=== PATIENT | male | born 1940 | race Caucasian/White ===

== ENCOUNTER 2016-12-28 07:25 | Outpatient (CLI) | payer MEDICARE ==
[2016-12-28 07:52] LABS: Hemoglobin A1c 5.8 % (4.0-6.0)
[2016-12-28 08:33] LABS: ALT (SGPT) 14 U/L (0-55); AST (SGOT) 21 U/L (5-34); Albumin 3.8 g/dL (3.4-4.8); Alkaline Phosphatase 63 U/L (40-150); Anion Gap 16 mmol/L (10-20); BUN (Urea Nitrogen) 23 mg/dL (8.4-25.7); Bilirubin, Direct 0.4 mg/dL (0.1-0.3); Calc. Creatinine Clearance 0 mL/min (70-130); Calcium 9.6 mg/dL (7.8-10.44); Carbon Dioxide 26 mmol/L (23-31); Cardiac Risk 2.8 (Less than 4.5); Chloride 102 mmol/L (98-107); Cholesterol 124 mg/dL (< 200 Desired); Estimated GFR-MDRD 52; Glucose 110 mg/dL (83-110); HDL Cholesterol 44 mg/dL (>60 Neg Risk); LDL Cholesterol, Calculated 70 mg/dL; Potassium 4.4 mmol/L (3.5-5.1); Protein, Total 6.7 g/dL (5.8-8.1); Sodium 140 mmol/L (136-145); Triglycerides 51 mg/dL (Less than 150)
== END 2016-12-28 07:26 | disposition home or self-care (01) ==
LOC: MADLAB 07:25
PROVIDERS: ATTEND Internal Medicine Cardiovascular Disease
DX: Z48.812 Encounter for surgical aftercare following surgery on the circulatory system (principal); Z95.1 Presence of aortocoronary bypass graft
CPT/HCPCS: 36415; 80048; 80061; 80076; 83036

== ENCOUNTER 2017-08-08 10:07 | Outpatient (CLI) | payer MEDICARE ==
[2017-08-08 10:26] LABS: #Basophils 0.1 thou/uL (0.0-0.2); #Eosinphils 0.2 thou/uL (0.0-0.7); #Lymphocytes 1.7 thou/uL (1.20-3.40); #Monocytes 0.5 thou/uL (0.11-0.59); #Neutrophils 4.7 thou/uL (1.40-6.50); %Basophils 0.9 % (0.0-1.0); %Eosinophils 2.2 % (0.0-10.0); %Lymphocytes 23.7 % (21.0-51.0); %Monocytes 7.4 % (0.0-10.0); %Neutrophils 65.9 % (42.0-75.0); Hemoglobin 11.7 g/dL (14.0-18.0); Mean Corpuscular HGB CONC 34.2 g/dL (32.0-36.0); Mean Corpuscular Hemoglobin 31.7 pg (27.0-31.0); Mean Corpuscular Volume 92.6 fl (80.0-94.0); Mean Platelet Volume 9.1 fL (7.4-10.4); Platelet Count 121 thou/uL (130-400); RBC Distribution Width 12.1 % (11.5-14.5); White Blood Cell (WBC) Count 7.2 thou/uL (4.8-10.8)
[2017-08-08 10:38] LABS: Hemoglobin A1c 5.5 % (4.0-6.0)
[2017-08-08 11:51] LABS: ALT (SGPT) 14 U/L (8-55); AST (SGOT) 20 U/L (5-34); Albumin 3.4 g/dL (3.4-4.8); Alkaline Phosphatase 63 U/L (40-150); Anion Gap 13 mmol/L (10-20); BUN (Urea Nitrogen) 23 mg/dL (8.4-25.7); Bilirubin, Direct 0.4 mg/dL (0.1-0.3); Bilirubin, Total 0.8 mg/dL (0.2-1.2); Calc. Creatinine Clearance 0 mL/min (70-130); Calcium 9.2 mg/dL (7.8-10.44); Carbon Dioxide 25 mmol/L (23-31); Cardiac Risk 2.7 (Less than 4.5); Chloride 104 mmol/L (98-107); Cholesterol 93 mg/dl (< 200 Desired); Estimated GFR-MDRD 52; Glucose 101 mg/dL (83-110); HDL Cholesterol 34 mg/dL (>60 Neg Risk); LDL Cholesterol, Calculated 49 mg/dL; Potassium 4.1 mmol/L (3.5-5.1); Protein, Total 6.4 g/dL (5.8-8.1); Sodium 138 mmol/L (136-145); Triglycerides 52 mg/dL (Less than 150)
== END 2017-08-08 10:08 | disposition home or self-care (01) ==
LOC: MADLAB 10:07
PROVIDERS: ATTEND Family Medicine
DX: E11.65 Type 2 diabetes mellitus with hyperglycemia (principal); Z95.810 Presence of automatic (implantable) cardiac defibrillator
CPT/HCPCS: 36415; 80048; 80061; 80076; 83036; 85025

== ENCOUNTER 2018-09-01 07:55 | Outpatient (CLI) | payer MEDICARE ==
[2018-09-02 11:57] LABS: Chloride 105 mmol/L (98-107); Potassium 4.2 mmol/L (3.5-5.1); Sodium 141 mmol/L (136-145)
[2018-09-02 11:58] LABS: Anion Gap 12 mmol/L (10-20); BUN (Urea Nitrogen) 22 mg/dL (8.4-25.7); Calc. Creatinine Clearance 0 mL/min (70-130); Carbon Dioxide 28 mmol/L (23-31); Estimated GFR-MDRD 55; Glucose 107 mg/dL (83-110)
[2018-09-02 11:59] LABS: Calcium 9.4 mg/dL (7.8-10.44)
== END 2018-09-01 07:56 | disposition home or self-care (01) ==
LOC: MADLAB 07:55
PROVIDERS: ATTEND Family Medicine
DX: I10 Essential (primary) hypertension (principal)
CPT/HCPCS: 36415; 80048

== ENCOUNTER 2019-10-01 13:25 | Emergency (ER) | payer MEDICARE ==
--- NOTE | 2019-10-01 14:07 | RAD ---
Portable frontal chest radiograph: 10/01/2019 COMPARISON: 08/27/2017 HISTORY: Chest pain FINDINGS: Stable transvenous AICD, midline sternotomy wires, and mediastinal clips. Heart and mediast inal contours are stable. Stable atherosclerotic calcification of the aortic arch. There is mild diffuse increased linear interstitial density with pulmonary hyperinflation, stable as well. No pneumothorax or pleural fluid. No focal consolidation or alveolar edema. IMPRESSION: Stable appearance of the chest as described above.
[2019-10-01] MEDS ORDERED: Aspirin Chewable 81 MG TAB ONE (14:13)
[2019-10-01] MEDS ORDERED: Nitroglycerin 0.4 MG TAB 1 EACH ONE (14:13)
[2019-10-01 14:22] LABS: #Eosinphils 0.1 thou/uL (0.0-0.7); #Lymphocytes 1.5 thou/uL (1.20-3.40); #Monocytes 0.6 thou/uL (0.11-0.59); #Neutrophils 5.2 thou/uL (1.40-6.50); %Basophils 0.6 % (0.0-1.0); %Eosinophils 1.6 % (0.0-10.0); %Lymphocytes 20.2 % (21.0-51.0); %Monocytes 7.7 % (0.0-10.0); ALT (SGPT) 8 U/L (8-55); AST (SGOT) 15 U/L (5-34); Albumin 3.3 g/dL (3.4-4.8); Alkaline Phosphatase 65 U/L (40-110); Anion Gap 13 mmol/L (10-20); BUN (Urea Nitrogen) 27 mg/dL (8.4-25.7); Bilirubin, Total 0.7 mg/dL (0.2-1.2); Calc. Creatinine Clearance 0 mL/min (70-130); Calcium 8.8 mg/dL (7.8-10.44); Carbon Dioxide 24 mmol/L (23-31); Chloride 103 mmol/L (98-107); Estimated GFR-MDRD 45; Globulin 2.8 g/dL (2.4-3.5); Glucose 154 mg/dL (83-110); Hemoglobin 10.8 g/dL (14.0-18.0); Mean Corpuscular Hemoglobin 30.3 pg (27.0-31.0); Mean Corpuscular Volume 94.7 fL (78.0-98.0); Mean Platelet Volume 9.1 fL (7.4-10.4); Platelet Count 113 thou/uL (130-400); Platelet Morphology Comment Appears Decreased; Potassium 4.3 mmol/L (3.5-5.1); Protein, Total 6.1 g/dL (5.8-8.1); RBC Distribution Width 11.6 % (11.5-14.5); Red Blood Cell (RBC) Count 3.55 mill/uL (4.70-6.10); Sodium 136 mmol/L (136-145); White Blood Cell (WBC) Count 7.5 thou/uL (4.8-10.8)
[2019-10-01] MEDS ORDERED: Sodium Chloride 0.9% 1,000 ML ONE (14:24)
[2019-10-01] MEDS ORDERED: Morphine 4 MG/ML VIAL ONE (15:58)
== END 2019-10-01 16:27 | disposition short-term general hospital (02) ==
LOC: MADERS 13:25
DX: R07.9 Chest pain, unspecified (principal); I25.10 Atherosclerotic heart disease of native coronary artery without angina pectoris; I25.2 Old myocardial infarction; E11.9 Type 2 diabetes mellitus without complications; E78.5 Hyperlipidemia, unspecified; E78.00 Pure hypercholesterolemia, unspecified; I10 Essential (primary) hypertension; Z87.891 Personal history of nicotine dependence; Z79.82 Long term (current) use of aspirin; Z79.84 Long term (current) use of oral hypoglycemic drugs; Z79.899 Other long term (current) drug therapy
CPT/HCPCS: 71045; 80053; 83880; 84484; 85025; 93005; 94760; 96361; 96374; J2270; J7050

== ENCOUNTER 2020-01-14 21:21 | Emergency (ER) | payer MEDICARE ==
[2020-01-14 22:08] LABS: INR-International Normal Ratio 1.3; PTT 35.5 SEC (22.9-36.1); Prothrombin Time 16.4 SEC (12.0-14.7)
--- NOTE | 2020-01-14 22:11 | RAD ---
Portable frontal chest radiograph: 01/14/2020 COMPARISON: 10/01/2019 HISTORY: Chest pain FINDINGS: Heart and mediastinal contours are stable. Stable midline sternotomy wires and transvenous pacing device. No pneumothorax, pleural fluid, focal consolidation, or alveolar edema. IMPRESSION: No acute findings.
[2020-01-14 22:19] LABS: ALT (SGPT) 13 U/L (8-55); AST (SGOT) 20 U/L (5-34); Albumin 3.5 g/dL (3.4-4.8); Alkaline Phosphatase 75 U/L (40-110); Anion Gap 13 mmol/L (10-20); BUN (Urea Nitrogen) 22 mg/dL (8.4-25.7); Bilirubin, Total 0.6 mg/dL (0.2-1.2); Calc. Creatinine Clearance 0 mL/min (70-130); Calcium 8.7 mg/dL (7.8-10.44); Carbon Dioxide 24 mmol/L (23-31); Chloride 104 mmol/L (98-107); Estimated GFR-MDRD 53; Globulin 2.9 g/dL (2.4-3.5); Glucose 113 mg/dL (83-110); Potassium 4.4 mmol/L (3.5-5.1); Protein, Total 6.4 g/dL (5.8-8.1); Sodium 137 mmol/L (136-145)
[2020-01-14 22:21] LABS: #Basophils 0.1 thou/uL (0.0-0.2); #Eosinphils 0.1 thou/uL (0.0-0.7); #Monocytes 0.6 thou/uL (0.11-0.59); #Neutrophils 3.2 thou/uL (1.40-6.50); %Basophils 0.9 % (0.0-1.0); %Eosinophils 1.8 % (0.0-10.0); %Lymphocytes 32.8 % (21.0-51.0); %Monocytes 9.9 % (0.0-10.0); %Neutrophils 54.7 % (42.0-75.0); Mean Corpuscular HGB CONC 32.4 g/dL (32.0-36.0); Mean Corpuscular Hemoglobin 30.2 pg (27.0-31.0); Mean Corpuscular Volume 93.2 fL (78.0-98.0); Mean Platelet Volume 10.7 fL (7.4-10.4); Platelet Count 106 thou/uL (130-400); Platelet Morphology Comment Appears Decreased; RBC Distribution Width 11.5 % (11.5-14.5); RBC Morphology Normal; Red Blood Cell (RBC) Count 3.96 mill/uL (4.70-6.10); White Blood Cell (WBC) Count 5.8 thou/uL (4.8-10.8)
[2020-01-14 22:40] LABS: Manual Diff?? NO
[2020-01-14 22:41] LABS: MDiff Complete? YES
== END 2020-01-14 23:05 | disposition short-term general hospital (02) ==
LOC: MADERS 21:21
DX: R07.9 Chest pain, unspecified (principal); R04.0 Epistaxis; I25.10 Atherosclerotic heart disease of native coronary artery without angina pectoris; I25.2 Old myocardial infarction; E11.9 Type 2 diabetes mellitus without complications; E78.5 Hyperlipidemia, unspecified; E78.00 Pure hypercholesterolemia, unspecified; I10 Essential (primary) hypertension; Z87.891 Personal history of nicotine dependence; Z79.84 Long term (current) use of oral hypoglycemic drugs; Z79.899 Other long term (current) drug therapy; Z79.82 Long term (current) use of aspirin
CPT/HCPCS: 71045; 80053; 84484; 85025; 85610; 85730; 94760

== ENCOUNTER 2020-08-20 18:12 | Emergency (ER) | payer MEDICARE ==
[~2020-08-20 18:12] MED LIST: Iopamidol 370 76% 100 ML VIAL ONE
[2020-08-20 19:10] LABS: #Basophils 0.1 thou/uL (0.0-0.2); #Eosinphils 0.1 thou/uL (0.0-0.7); #Lymphocytes 0.9 thou/uL (1.20-3.40); #Monocytes 0.6 thou/uL (0.11-0.59); #Neutrophils 9.2 thou/uL (1.40-6.50); %Basophils 0.6 % (0.0-1.0); %Eosinophils 0.5 % (0.0-10.0); %Lymphocytes 8.5 % (21.0-51.0); %Monocytes 5.9 % (0.0-10.0); %Neutrophils 84.5 % (42.0-75.0); Hemoglobin 11.4 g/dL (14.0-18.0); MDiff Complete? YES; Manual Diff?? NO; Mean Corpuscular HGB CONC 33.3 g/dL (32.0-36.0); Mean Corpuscular Hemoglobin 31.3 pg (27.0-31.0); Mean Platelet Volume 9.1 fL (7.4-10.4); Platelet Count 119 thou/uL (130-400); RBC Distribution Width 12.6 % (11.5-14.5); Red Blood Cell (RBC) Count 3.66 mill/uL (4.70-6.10); White Blood Cell (WBC) Count 10.9 thou/uL (4.8-10.8)
[2020-08-20 19:22] LABS: ALT (SGPT) 15 U/L (8-55); AST (SGOT) 17 U/L (5-34); Albumin 3.1 g/dL (3.4-4.8); Alkaline Phosphatase 85 U/L (40-110); Anion Gap 13 mmol/L (10-20); BUN (Urea Nitrogen) 22 mg/dL (8.4-25.7); Bilirubin, Total 0.9 mg/dL (0.2-1.2); Calc. Creatinine Clearance 0 mL/min (70-130); Calcium 8.7 mg/dL (7.8-10.44); Carbon Dioxide 27 mmol/L (23-31); Chloride 105 mmol/L (98-107); Estimated GFR-MDRD 57; Globulin 2.9 g/dL (2.4-3.5); Glucose 145 mg/dL (83-110); Lipase 7 U/L (8-78); Potassium 4.6 mmol/L (3.5-5.1); Sodium 140 mmol/L (136-145)
--- NOTE | 2020-08-20 21:16 | CT ---
CT ABDOMEN AND PELVIS WITH IV CONTRAST: 08/20/20 HISTORY: Constipation, vomiting. COMPARISON: 05/28/20 and 05/17/20. FINDINGS: Calcified pleural plaques are again seen. The small low density lesion in the right lobe of the liver is again seen. The gallbladder is distended without calcified gallstones. The spleen, pancreas, adre nal glands and left kidney are normal. There is a tiny nonobstructing right renal calculus. No free air, free fluid or lymphadenopathy is seen in the abdomen or pelvis. The prostate is enlarged . The small bowel loops are not abnormally dilated. There is fecal material in the colon. there are v ascular calcifications without evidence of aneurysmal dilatation of the abdominal aorta. There are de generative changes in the spine. IMPRESSION: 1. Gallbladder distention. 2. Tiny nonobstructing right renal calculus. 3. Prostatic enlargement. 4. Constipation. 5. No evidence of small bowel obstruction. POS: OFF
== END 2020-08-20 21:15 | disposition home or self-care (01) ==
LOC: MADERS 18:12
DX: K59.00 Constipation, unspecified (principal); R11.10 Vomiting, unspecified; E11.9 Type 2 diabetes mellitus without complications; E78.5 Hyperlipidemia, unspecified; E78.00 Pure hypercholesterolemia, unspecified; I10 Essential (primary) hypertension; I25.10 Atherosclerotic heart disease of native coronary artery without angina pectoris; I25.2 Old myocardial infarction; Z87.891 Personal history of nicotine dependence
CPT/HCPCS: 36415; 74177; 80053; 83605; 83690; 85025; Q9967

== ENCOUNTER 2020-10-17 06:34 | Emergency (ER) | payer MEDICARE ==
[2020-10-17] MEDS ORDERED: methylPREDNISolone Sod Succ/PF 125 MG/2 ML VIAL ONE (07:04)
[2020-10-17] MEDS ORDERED: Fentanyl 100 MCG/2 ML VIAL ONE (07:04)
== END 2020-10-17 07:29 | disposition home or self-care (01) ==
LOC: MADERS 06:34
DX: M54.16 Radiculopathy, lumbar region (principal); I25.10 Atherosclerotic heart disease of native coronary artery without angina pectoris; I25.2 Old myocardial infarction; E11.9 Type 2 diabetes mellitus without complications; E78.5 Hyperlipidemia, unspecified; I10 Essential (primary) hypertension; E78.00 Pure hypercholesterolemia, unspecified; Z87.891 Personal history of nicotine dependence; Z79.899 Other long term (current) drug therapy; Z79.82 Long term (current) use of aspirin
CPT/HCPCS: 96374; 96375; J2930; J3010

== ENCOUNTER 2021-10-21 12:25 | Emergency (ER) | payer MEDICARE ==
[2021-10-21 13:17] LABS: #Basophils 0.1 thou/uL (0.0-0.2); #Eosinphils 0.1 thou/uL (0.0-0.7); #Lymphocytes 0.6 thou/uL (1.20-3.40); #Neutrophils 5.3 thou/uL (1.40-6.50); %Basophils 1.1 % (0.0-1.0); %Eosinophils 1.3 % (0.0-10.0); %Lymphocytes 7.8 % (21.0-51.0); %Monocytes 13.7 % (0.0-10.0); Hemoglobin 9.6 g/dL (14.0-18.0); Mean Corpuscular HGB CONC 34.5 g/dL (32.0-36.0); Mean Corpuscular Hemoglobin 32.2 pg (27.0-31.0); Mean Corpuscular Volume 93.3 fL (78.0-98.0); Mean Platelet Volume 6.9 fL (7.4-10.4); Platelet Count 156 thou/uL (130-400); RBC Distribution Width 12.2 % (11.5-14.5); Red Blood Cell (RBC) Count 2.99 mill/uL (4.70-6.10)
[2021-10-21] MEDS ORDERED: Sodium Chloride 0.9% 1,000 ML ONE (13:19)
[2021-10-21 13:35] LABS: ALT (SGPT) 11 U/L (8-55); AST (SGOT) 22 U/L (5-34); Albumin 2.6 g/dL (3.4-4.8); Alkaline Phosphatase 71 U/L (40-110); Anion Gap 11 mmol/L (10-20); BUN (Urea Nitrogen) 17 mg/dL (8.4-25.7); Bilirubin, Total 1.5 mg/dL (0.2-1.2); CK (CPK) 124 U/L (30-200); Calc. Creatinine Clearance 0 mL/min (70-130); Carbon Dioxide 32 mmol/L (23-31); Chloride 99 mmol/L (98-107); Globulin 2.8 g/dL (2.4-3.5); Glucose 131 mg/dL (83-110); Protein, Total 5.4 g/dL (5.8-8.1); Sodium 139 mmol/L (136-145)
[2021-10-21 13:56] LABS: Potassium 2.8 mmol/L (3.5-5.1)
[2021-10-21] MEDS ORDERED: Potassium Chloride 20 MEQ TAB ONE (14:13)
[2021-10-21 15:10] LABS: Bilirubin Small (Negative); Blood, Urine Negative (Negative); Clarity Clear (Clear); Glucose, Urine (Dipstick) 100 mg/dL (Negative); Ketone, Urine 15 mg/dL (Negative); Leukocyte Negative (Negative); Nitrite Negative (Negative); Protein, Urine (Dipstick) 30 mg/dL (Neg-Trace); Urobilinogen > or = 8.0 mg/dL (Less than 2)
[2021-10-21 15:17] LABS: Bacteria/HPF Rare-Few HPF (None Seen); Mucous/LPF 2+ LPF (<2+); RBC/HPF 0-3 HPF (0-3); Squamous Epithelial 0-3 HPF (0-3); WBC/HPF 0-3 HPF (0-3)
[2021-10-21] MEDS ORDERED: Sodium Chloride 0.9% 100 ML ONE (16:00)
[2021-10-21] MEDS ORDERED: cefTRIAXone\\ROCEPHIN 1 GM VIAL ONE (16:00)
== END 2021-10-21 16:25 | disposition home or self-care (01) ==
LOC: MADERS 12:25
DX: J18.9 Pneumonia, unspecified organism (principal); D64.9 Anemia, unspecified; E87.6 Hypokalemia; I95.1 Orthostatic hypotension; E11.9 Type 2 diabetes mellitus without complications; I10 Essential (primary) hypertension; I25.2 Old myocardial infarction; E78.5 Hyperlipidemia, unspecified; E78.00 Pure hypercholesterolemia, unspecified; Z87.891 Personal history of nicotine dependence
CPT/HCPCS: 70450; 71045; 71260; 80053; 81003; 81015; 82550; 83605; 84443; 84484; 85025; 93005; 94760; 96365; J0696; J3490; J7050

== ENCOUNTER 2022-01-15 18:35 | Emergency (ER) | payer MEDICARE ==
[2022-01-15] MEDS ORDERED: Nitroglycerin 0.4 MG TAB 1 EACH ONE (18:59)
[2022-01-15 19:21] LABS: #Basophils 0.1 thou/uL (0.0-0.2); #Eosinphils 0.2 thou/uL (0.0-0.7); #Lymphocytes 2.4 thou/uL (1.20-3.40); #Monocytes 0.6 thou/uL (0.11-0.59); #Neutrophils 3.7 thou/uL (1.40-6.50); %Basophils 0.8 % (0.0-1.0); %Eosinophils 3.1 % (0.0-10.0); %Lymphocytes 34.8 % (21.0-51.0); %Monocytes 8.6 % (0.0-10.0); %Neutrophils 52.7 % (42.0-75.0); Mean Corpuscular HGB CONC 34.2 g/dL (32.0-36.0); Mean Corpuscular Hemoglobin 31.7 pg (27.0-31.0); Mean Corpuscular Volume 92.6 fL (78.0-98.0); Platelet Count 116 thou/uL (130-400); RBC Distribution Width 10.8 % (11.5-14.5); Red Blood Cell (RBC) Count 4.42 mill/uL (4.70-6.10)
[2022-01-15 19:22] LABS: ALT (SGPT) 19 U/L (8-55); AST (SGOT) 24 U/L (5-34); Albumin 3.6 g/dL (3.4-4.8); Alkaline Phosphatase 122 U/L (40-110); Anion Gap 13 mmol/L (10-20); BUN (Urea Nitrogen) 17 mg/dL (8.4-25.7); Bilirubin, Total 0.7 mg/dL (0.2-1.2); CK (CPK) 38 U/L (30-200); Calc. Creatinine Clearance 0 mL/min (70-130); Calcium 9.3 mg/dL (7.8-10.44); Carbon Dioxide 27 mmol/L (23-31); Chloride 104 mmol/L (98-107); Globulin 3.4 g/dL (2.4-3.5); Glucose 117 mg/dL (83-110); Large Platelets SLIGHT; MDiff Complete? YES; Platelet Morphology Comment Appears Decreased; Potassium 3.9 mmol/L (3.5-5.1); Sodium 140 mmol/L (136-145)
[2022-01-15 19:23] LABS: CKMB 1.5 ng/mL (0-6.6)
== END 2022-01-15 20:10 | disposition home or self-care (01) ==
LOC: MADERS 18:35
DX: I25.709 Atherosclerosis of coronary artery bypass graft(s), unspecified, with unspecified angina pectoris (principal); M17.11 Unilateral primary osteoarthritis, right knee; I25.2 Old myocardial infarction; E11.9 Type 2 diabetes mellitus without complications; E78.5 Hyperlipidemia, unspecified; I10 Essential (primary) hypertension; Z79.899 Other long term (current) drug therapy
CPT/HCPCS: 71045; 80053; 82550; 82553; 84484; 85025; 93005; 94760

== ENCOUNTER 2022-05-15 17:39 | Emergency (ER) | payer MEDICARE ==
[~2022-05-15 17:39] MED LIST changes: -Iopamidol 370 76% 100 ML VIAL ONE; +Sodium Chloride 0.9% 500 ML BAG ONE
[2022-05-15 19:19] LABS: #Basophils 0.1 thou/uL (0.0-0.2); #Eosinphils 0.1 thou/uL (0.0-0.7); #Lymphocytes 1.7 thou/uL (1.20-3.40); #Monocytes 0.5 thou/uL (0.11-0.59); #Neutrophils 4.1 thou/uL (1.40-6.50); %Eosinophils 1.3 % (0.0-10.0); %Lymphocytes 26.9 % (21.0-51.0); %Monocytes 7.5 % (0.0-10.0); %Neutrophils 63.5 % (42.0-75.0); Hemoglobin 12.3 g/dL (14.0-18.0); Mean Corpuscular HGB CONC 33.9 g/dL (32.0-36.0); Mean Corpuscular Hemoglobin 31.6 pg (27.0-31.0); Mean Corpuscular Volume 93.4 fL (78.0-98.0); Mean Platelet Volume 12.4 fL (7.4-10.4); Platelet Count 99 thou/uL (130-400); White Blood Cell (WBC) Count 6.4 thou/uL (4.8-10.8)
[2022-05-15 19:20] LABS: Hypochromia SLIGHT = 6-15 cells (100X) (0-5/hpf); MDiff Complete? YES; Platelet Morphology Comment Appears Decreased
[2022-05-15 19:22] LABS: ALT (SGPT) 21 U/L (8-55); AST (SGOT) 14 U/L (5-34); Albumin 3.3 g/dL (3.4-4.8); Alkaline Phosphatase 97 U/L (40-110); Anion Gap 17 mmol/L (10-20); BUN (Urea Nitrogen) 22 mg/dL (8.4-25.7); Bicarbonate (HCO3v) 25.2 mmol/L (22.0-28.0); Bilirubin, Total 0.9 mg/dL (0.2-1.2); CO2 Tension (PvCO2) 42.1 mmHg (42.0-51.0); Calc. Creatinine Clearance 0 mL/min (70-130); Calcium 9.4 mg/dL (7.8-10.44); Calcium, Ionized 1.25 mmol/L (1.15-1.33); Carbon Dioxide 24 mmol/L (23-31); Chloride 94 mmol/L (98-107); Hemoglobin - Calc 12.7 g/dL (14.0-18.0); Potassium 4.8 mmol/L (3.5-5.1); Protein, Total 6.3 g/dL (5.8-8.1); Sodium 128 mmol/L (138-145); Sodium 130 mmol/L (136-145); T. Carbon Dioxide 26.5 mmol/L (22.0-28.0); vO2 Saturation-calc 84.3 % (60.0-85.0)
[2022-05-15 19:31] LABS: Glucose 676 mg/dL (83-110)
[2022-05-15] MEDS ORDERED: Sodium Chloride 0.9% 500 ML ONE (19:49)
[2022-05-15] MEDS ORDERED: Insulin Regular 300 UNITS/3 ML VIAL ONE (19:49)
[2022-05-15 20:44] LABS: Bilirubin Negative (Negative); Blood, Urine Negative (Negative); Clarity Clear (Clear); Glucose, Urine (Dipstick) >=1000 mg/dL (Negative); Ketone, Urine Negative (Negative); Leukocyte Negative (Negative); Nitrite Negative (Negative); Protein, Urine (Dipstick) Negative (Neg-Trace); Urobilinogen 0.2 mg/dL (Less than 2); pH, Urine 5.5 (5.0-9.0)
[2022-05-15 20:45] LABS: Specific Gravity, Urine 1.035 (1.002-1.036)
== END 2022-05-15 21:58 | disposition short-term general hospital (02) ==
LOC: MADERS 17:39
DX: E11.65 Type 2 diabetes mellitus with hyperglycemia (principal); E86.0 Dehydration; I25.2 Old myocardial infarction; E78.5 Hyperlipidemia, unspecified; I10 Essential (primary) hypertension; Z79.899 Other long term (current) drug therapy
CPT/HCPCS: 36416; 71045; 80053; 81003; 82010; 82330; 82803; 85025; 96361; 96374; J1815; J7030

== ENCOUNTER 2022-05-23 21:23 | Emergency (ER) | payer MEDICARE ==
[2022-05-23 22:57] LABS: #Eosinphils 0.1 thou/uL (0.0-0.7); #Lymphocytes 1.3 thou/uL (1.20-3.40); #Monocytes 0.7 thou/uL (0.11-0.59); #Neutrophils 6.1 thou/uL (1.40-6.50); %Basophils 0.5 % (0.0-1.0); %Lymphocytes 15.4 % (21.0-51.0); %Monocytes 8.9 % (0.0-10.0); %Neutrophils 74.2 % (42.0-75.0); Hemoglobin 12.7 g/dL (14.0-18.0); Mean Corpuscular HGB CONC 34.4 g/dL (32.0-36.0); Mean Corpuscular Hemoglobin 31.8 pg (27.0-31.0); Mean Corpuscular Volume 92.2 fL (78.0-98.0); Mean Platelet Volume 10.5 fL (7.4-10.4); Platelet Count 117 thou/uL (130-400); Platelet Morphology Comment Appears Decreased; RBC Distribution Width 11.6 % (11.5-14.5); White Blood Cell (WBC) Count 8.2 thou/uL (4.8-10.8)
[2022-05-23 23:11] LABS: ALT (SGPT) 23 U/L (8-55); AST (SGOT) 18 U/L (5-34); Albumin 3.4 g/dL (3.4-4.8); Alkaline Phosphatase 80 U/L (40-110); Anion Gap 13 mmol/L (10-20); BUN (Urea Nitrogen) 22 mg/dL (8.4-25.7); Bilirubin, Total 0.7 mg/dL (0.2-1.2); Calc. Creatinine Clearance 0 mL/min (70-130); Calcium 9.1 mg/dL (7.8-10.44); Carbon Dioxide 26 mmol/L (23-31); Chloride 102 mmol/L (98-107); Estimated GFR 46; Glucose 302 mg/dL (83-110); Lipase 14 U/L (8-78); Potassium 4.4 mmol/L (3.5-5.1); Protein, Total 6.4 g/dL (5.8-8.1); Sodium 137 mmol/L (136-145)
== END 2022-05-24 00:52 | disposition home or self-care (01) ==
LOC: MADERS 21:23
DX: K59.00 Constipation, unspecified (principal); I25.2 Old myocardial infarction; E11.9 Type 2 diabetes mellitus without complications; E78.5 Hyperlipidemia, unspecified; I10 Essential (primary) hypertension; Z79.899 Other long term (current) drug therapy
CPT/HCPCS: 74176; 83690; 84484; 85025; 93005; 94760; 36415-59

== ENCOUNTER 2022-06-08 13:30 | Emergency (ER) | payer MEDICARE ==
[2022-06-08] MEDS ORDERED: Sodium Chloride 0.9% 500 ML ONE (14:04)
[2022-06-08 14:34] LABS: #Eosinphils 0.1 thou/uL (0.0-0.7); #Lymphocytes 1.9 thou/uL (1.20-3.40); #Monocytes 0.6 thou/uL (0.11-0.59); #Neutrophils 5.2 thou/uL (1.40-6.50); %Basophils 0.6 % (0.0-1.0); %Eosinophils 1.5 % (0.0-10.0); %Lymphocytes 23.9 % (21.0-51.0); %Monocytes 7.2 % (0.0-10.0); %Neutrophils 66.8 % (42.0-75.0); Hemoglobin 13.1 g/dL (14.0-18.0); Mean Corpuscular HGB CONC 33.5 g/dL (32.0-36.0); Mean Corpuscular Volume 92.7 fL (78.0-98.0); Mean Platelet Volume 9.7 fL (7.4-10.4); Platelet Count 147 thou/uL (130-400); RBC Distribution Width 12.2 % (11.5-14.5); Red Blood Cell (RBC) Count 4.23 mill/uL (4.70-6.10); White Blood Cell (WBC) Count 7.8 thou/uL (4.8-10.8)
[2022-06-08 14:53] LABS: ALT (SGPT) 18 U/L (8-55); AST (SGOT) 17 U/L (5-34); Albumin 3.6 g/dL (3.4-4.8); Alkaline Phosphatase 70 U/L (40-110); Anion Gap 16 mmol/L (10-20); BUN (Urea Nitrogen) 28 mg/dL (8.4-25.7); Bilirubin, Total 0.9 mg/dL (0.2-1.2); Calc. Creatinine Clearance 0 mL/min (70-130); Calcium 9.4 mg/dL (7.8-10.44); Carbon Dioxide 22 mmol/L (23-31); Chloride 104 mmol/L (98-107); Estimated GFR 46; Glucose 153 mg/dL (83-110); Potassium 4.5 mmol/L (3.5-5.1); Protein, Total 6.6 g/dL (5.8-8.1); Sodium 137 mmol/L (136-145)
[2022-06-08 15:16] LABS: Bilirubin Negative (Negative); Blood, Urine Negative (Negative); Clarity Clear (Clear); Glucose, Urine (Dipstick) >=1000 mg/dL (Negative); Ketone, Urine Negative (Negative); Leukocyte Negative (Negative); Nitrite Negative (Negative); Protein, Urine (Dipstick) Negative (Neg-Trace); Specific Gravity, Urine 1.015 (1.005-1.030); pH, Urine 6.5 (5.0-9.0)
== END 2022-06-08 15:55 | disposition home or self-care (01) ==
LOC: MADERS 13:30
DX: E86.0 Dehydration (principal); R53.1 Weakness; I12.9 Hypertensive chronic kidney disease with stage 1 through stage 4 chronic kidney disease, or unspecified chronic kidney disease; E11.22 Type 2 diabetes mellitus with diabetic chronic kidney disease; N18.9 Chronic kidney disease, unspecified; I25.10 Atherosclerotic heart disease of native coronary artery without angina pectoris; I25.2 Old myocardial infarction; E78.5 Hyperlipidemia, unspecified; Z20.822 Contact with and (suspected) exposure to COVID-19
CPT/HCPCS: 71045; 80053; 81003; 84484; 85025; 93005; 94760; U0003; U0005; J7030

== ENCOUNTER 2022-07-09 15:41 | Inpatient (IN) | payer MEDICARE ==
[2022-07-09] MEDS ORDERED: Dextrose 50% Abboject 50 ML SYRINGE IVP PRN (21:00)
[2022-07-09] MEDS ORDERED: HumaLOG 300 UNITS/3 ML VIAL SC PRN (21:00)
[2022-07-09] MEDS ORDERED: Dextrose 5% in Water 1,000 ML IV PRN (21:00)
[2022-07-09] MEDS: Atorvastatin Calcium 40 MG TAB PO SCH (22:20)
[2022-07-09] MEDS: Gabapentin 100 MG CAP PO SCH (22:21)
[2022-07-09] MEDS: Midodrine HCl 2.5 MG TAB PO SCH (22:22)
[2022-07-09] MEDS: levETIRAcetam 500 MG TAB PO SCH (22:22)
[2022-07-10 04:04] VITALS: BMI 23.2
[2022-07-10] MEDS: Gabapentin 100 MG CAP PO SCH ×2 (09:09→20:23)
[2022-07-10] MEDS: Aspirin Chewable 81 MG TAB PO SCH (09:09)
[2022-07-10] MEDS: Clopidogrel Bisulfate 75 MG TAB PO SCH (09:09)
[2022-07-10] MEDS: levETIRAcetam 500 MG TAB PO SCH ×2 (09:10→20:22)
[2022-07-10] MEDS: ICOSAPENT ETHYL 1 GM PO SCH ×2 (09:10→20:31)
[2022-07-10] MEDS: Midodrine HCl 2.5 MG TAB PO SCH ×2 (09:10→20:22)
[2022-07-10] MEDS: Polyethylene Glycol 3350 17 GM Packet PO SCH (09:10)
[2022-07-10] MEDS: Atorvastatin Calcium 40 MG TAB PO SCH (20:22)
[2022-07-11] MEDS: Lantus 1000 UNITS/10 ML VIAL SC SCH (09:38)
[2022-07-11] MEDS: Clopidogrel Bisulfate 75 MG TAB PO SCH (09:39)
[2022-07-11] MEDS: Empagliflozin 10 MG TAB PO SCH (09:39)
[2022-07-11] MEDS: Aspirin Chewable 81 MG TAB PO SCH (09:39)
[2022-07-11] MEDS: Gabapentin 100 MG CAP PO SCH ×2 (09:40→20:24)
[2022-07-11] MEDS: levETIRAcetam 500 MG TAB PO SCH ×2 (09:40→20:23)
[2022-07-11] MEDS: Fludrocortisone Acetate 0.1 MG TAB PO SCH (09:40)
[2022-07-11] MEDS: Midodrine HCl 2.5 MG TAB PO SCH ×2 (09:40→20:24)
[2022-07-11] MEDS: Polyethylene Glycol 3350 17 GM Packet PO SCH (09:43)
[2022-07-11] MEDS: ICOSAPENT ETHYL 1 GM PO SCH ×2 (09:43→20:25)
[2022-07-11] MEDS: Atorvastatin Calcium 40 MG TAB PO SCH (20:23)
[2022-07-11] MEDS: Acetaminophen 325 MG TAB PO PRN (20:27)
[2022-07-12 05:39] LABS: #Basophils 0.1 thou/uL (0.0-0.2); #Eosinphils 0.2 thou/uL (0.0-0.7); #Lymphocytes 1.8 thou/uL (1.20-3.40); #Monocytes 0.7 thou/uL (0.11-0.59); #Neutrophils 4.2 thou/uL (1.40-6.50); %Basophils 1.2 % (0.0-1.0); %Eosinophils 3.3 % (0.0-10.0); %Monocytes 9.4 % (0.0-10.0); %Neutrophils 60.1 % (42.0-75.0); Hemoglobin 12.8 g/dL (14.0-18.0); Mean Corpuscular HGB CONC 32.2 g/dL (32.0-36.0); Mean Corpuscular Hemoglobin 31.9 pg (27.0-31.0); Mean Corpuscular Volume 99.3 fL (78.0-98.0); Mean Platelet Volume 11.1 fL (7.4-10.4); Platelet Count 127 thou/uL (130-400); RBC Distribution Width 12.8 % (11.5-14.5); Red Blood Cell (RBC) Count 4.01 mill/uL (4.70-6.10)
[2022-07-12 05:54] LABS: ALT (SGPT) 17 U/L (8-55); AST (SGOT) 14 U/L (5-34); Albumin 3.2 g/dL (3.4-4.8); Alkaline Phosphatase 71 U/L (40-110); Anion Gap 12 mmol/L (10-20); BUN (Urea Nitrogen) 31 mg/dL (8.4-25.7); Bilirubin, Total 0.6 mg/dL (0.2-1.2); Calc. Creatinine Clearance 42 mL/min (70-130); Calcium 9.3 mg/dL (7.8-10.44); Carbon Dioxide 24 mmol/L (23-31); Chloride 106 mmol/L (98-107); Estimated GFR 46; Globulin 2.5 g/dL (2.4-3.5); Glucose 110 mg/dL (83-110); Potassium 4.1 mmol/L (3.5-5.1); Protein, Total 5.7 g/dL (5.8-8.1); Sodium 138 mmol/L (136-145)
[2022-07-12] MEDS: Acetaminophen 325 MG TAB PO PRN (08:03)
[2022-07-12] MEDS: Midodrine HCl 2.5 MG TAB PO SCH ×2 (08:07→20:38)
[2022-07-12] MEDS: Aspirin Chewable 81 MG TAB PO SCH (08:07)
[2022-07-12] MEDS: Fludrocortisone Acetate 0.1 MG TAB PO SCH (08:08)
[2022-07-12] MEDS: Clopidogrel Bisulfate 75 MG TAB PO SCH (08:08)
[2022-07-12] MEDS: Gabapentin 100 MG CAP PO SCH ×2 (08:08→20:37)
[2022-07-12] MEDS: levETIRAcetam 500 MG TAB PO SCH ×2 (08:08→20:38)
[2022-07-12] MEDS: Empagliflozin 10 MG TAB PO SCH (08:08)
[2022-07-12] MEDS: ICOSAPENT ETHYL 1 GM PO SCH ×2 (08:09→20:38)
[2022-07-12] MEDS: Polyethylene Glycol 3350 17 GM Packet PO SCH (08:09)
[2022-07-12] MEDS: Lantus 1000 UNITS/10 ML VIAL SC SCH (08:09)
[2022-07-12] MEDS: Atorvastatin Calcium 40 MG TAB PO SCH (20:38)
[2022-07-13] MEDS: Polyethylene Glycol 3350 17 GM Packet PO SCH (07:57)
[2022-07-13] MEDS: Midodrine HCl 2.5 MG TAB PO SCH ×3 (07:58→20:45)
[2022-07-13] MEDS: Lantus 1000 UNITS/10 ML VIAL SC SCH (07:59)
[2022-07-13] MEDS ORDERED: Polyethylene Glycol 3350 17 GM Packet PO PRN (07:59)
[2022-07-13] MEDS: ICOSAPENT ETHYL 1 GM PO SCH ×2 (08:00→20:45)
[2022-07-13] MEDS ORDERED: Midodrine HCl 2.5 MG TAB PO SCH (08:15)
[2022-07-13] MEDS: Gabapentin 100 MG CAP PO SCH ×2 (08:33→20:45)
[2022-07-13] MEDS: levETIRAcetam 500 MG TAB PO SCH ×2 (08:33→20:45)
[2022-07-13] MEDS: Fludrocortisone Acetate 0.1 MG TAB PO SCH (08:33)
[2022-07-13] MEDS: Clopidogrel Bisulfate 75 MG TAB PO SCH (08:33)
[2022-07-13] MEDS: Aspirin Chewable 81 MG TAB PO SCH (08:33)
[2022-07-13] MEDS: Empagliflozin 10 MG TAB PO SCH (08:33)
[2022-07-13 11:40] LABS: Hemoglobin A1c 6.6 % (4.0-6.0)
[2022-07-13] MEDS: Atorvastatin Calcium 40 MG TAB PO SCH (20:44)
[2022-07-14] MEDS: Gabapentin 100 MG CAP PO SCH ×2 (08:42→21:10)
[2022-07-14] MEDS: Midodrine HCl 2.5 MG TAB PO SCH ×3 (08:42→21:10)
[2022-07-14] MEDS: Empagliflozin 10 MG TAB PO SCH (08:42)
[2022-07-14] MEDS: Clopidogrel Bisulfate 75 MG TAB PO SCH (08:42)
[2022-07-14] MEDS: Fludrocortisone Acetate 0.1 MG TAB PO SCH (08:42)
[2022-07-14] MEDS: Aspirin Chewable 81 MG TAB PO SCH (08:42)
[2022-07-14] MEDS: ICOSAPENT ETHYL 1 GM PO SCH ×2 (08:43→21:11)
[2022-07-14] MEDS: Lantus 1000 UNITS/10 ML VIAL SC SCH (08:43)
[2022-07-14] MEDS: levETIRAcetam 500 MG TAB PO SCH ×2 (08:43→21:10)
[2022-07-14] MEDS: Atorvastatin Calcium 40 MG TAB PO SCH (21:10)
[2022-07-15] MEDS: levETIRAcetam 500 MG TAB PO SCH ×2 (09:15→21:28)
[2022-07-15] MEDS: Gabapentin 100 MG CAP PO SCH ×2 (09:16→21:28)
[2022-07-15] MEDS: ICOSAPENT ETHYL 1 GM PO SCH ×2 (09:16→21:33)
[2022-07-15] MEDS: Lantus 1000 UNITS/10 ML VIAL SC SCH (09:17)
[2022-07-15] MEDS: Aspirin Chewable 81 MG TAB PO SCH (09:17)
[2022-07-15] MEDS: Empagliflozin 10 MG TAB PO SCH (09:17)
[2022-07-15] MEDS: Midodrine HCl 2.5 MG TAB PO SCH ×3 (09:17→21:27)
[2022-07-15] MEDS: Fludrocortisone Acetate 0.1 MG TAB PO SCH (09:17)
[2022-07-15] MEDS: Clopidogrel Bisulfate 75 MG TAB PO SCH (09:17)
[2022-07-15] MEDS: Atorvastatin Calcium 40 MG TAB PO SCH (21:28)
[2022-07-16] MEDS: Aspirin Chewable 81 MG TAB PO SCH (08:09)
[2022-07-16] MEDS: levETIRAcetam 500 MG TAB PO SCH (08:09)
[2022-07-16] MEDS: Gabapentin 100 MG CAP PO SCH (08:09)
[2022-07-16] MEDS: Midodrine HCl 2.5 MG TAB PO SCH (08:10)
[2022-07-16] MEDS: Fludrocortisone Acetate 0.1 MG TAB PO SCH (08:10)
[2022-07-16] MEDS: Clopidogrel Bisulfate 75 MG TAB PO SCH (08:10)
[2022-07-16] MEDS: Empagliflozin 10 MG TAB PO SCH (08:10)
[2022-07-16] MEDS: Lantus 1000 UNITS/10 ML VIAL SC SCH (08:10)
[2022-07-16] MEDS: ICOSAPENT ETHYL 1 GM PO SCH (08:11)
[2022-07-16 08:58] VITALS: BP 128/71; TEMP 97.2
== END 2022-07-16 11:45 | disposition home or self-care (01) | DRG 312 ==
LOC: MADMS 19:15
PROVIDERS: ADMIT Family Medicine; ATTEND Family Medicine
DX: I95.1 Orthostatic hypotension (principal); R53.1 Weakness; I25.5 Ischemic cardiomyopathy; I25.10 Atherosclerotic heart disease of native coronary artery without angina pectoris; I10 Essential (primary) hypertension; E78.5 Hyperlipidemia, unspecified; E11.40 Type 2 diabetes mellitus with diabetic neuropathy, unspecified; K21.9 Gastro-esophageal reflux disease without esophagitis; Z96.1 Presence of intraocular lens; K59.00 Constipation, unspecified; M47.812 Spondylosis without myelopathy or radiculopathy, cervical region; M43.12 Spondylolisthesis, cervical region; L57.0 Actinic keratosis; Z20.822 Contact with and (suspected) exposure to COVID-19; I25.2 Old myocardial infarction; Z95.810 Presence of automatic (implantable) cardiac defibrillator; Z98.42 Cataract extraction status, left eye; Z98.41 Cataract extraction status, right eye; Z90.49 Acquired absence of other specified parts of digestive tract; Z91.81 History of falling
CPT/HCPCS: 36416; 80053; 83036; 85025; J1815; U0003; U0005

== ENCOUNTER 2023-11-04 16:15 | Emergency (ER) | payer MEDICARE ==
[2023-11-04 17:59] LABS: #Basophils 0.1 thou/uL (0.0-0.2); #Eosinphils 0.2 thou/uL (0.0-0.7); #Lymphocytes 4.2 thou/uL (1.20-3.40); #Monocytes 0.6 thou/uL (0.11-0.59); #Neutrophils 4.2 thou/uL (1.40-6.50); %Basophils 1.1 % (0.0-1.0); %Eosinophils 1.9 % (0.0-10.0); %Lymphocytes 44.8 % (21.0-51.0); %Monocytes 6.7 % (0.0-10.0); %Neutrophils 45.5 % (42.0-75.0); Hematocrit 48.7 % (42.0-52.0); Hemoglobin 15.6 g/dL (14.0-18.0); Mean Corpuscular Hemoglobin 31.8 pg (27.0-31.0); Mean Corpuscular Volume 99.4 fl (78.0-98.0); Platelet Adequacy Comment Appears Decreased; Platelet Count 105 10x3/uL (130-400); RBC Distribution Width 12.7 % (11.5-14.5); White Blood Cell (WBC) Count 9.3 10x3/uL (4.8-10.8)
[2023-11-04 18:14] LABS: ALT (SGPT) 18 U/L (8-55); AST (SGOT) 16 U/L (5-34); Albumin 3.4 g/dL (3.4-4.8); Alkaline Phosphatase 78 U/L (40-110); Anion Gap 14 mmol/L (10-20); BUN (Urea Nitrogen) 13 mg/dL (8.4-25.7); Bilirubin, Total 0.8 mg/dL (0.2-1.2); Calc. Creatinine Clearance 0 mL/min (70-130); Calcium 8.7 mg/dL (7.8-10.44); Carbon Dioxide 24 mmol/L (23-31); Chloride 108 mmol/L (98-107); Estimated GFR 53; Globulin 2.6 g/dL (2.4-3.5); Glucose 87 mg/dL (83-110); Potassium 3.5 mmol/L (3.5-5.1); Sodium 142 mmol/L (136-145)
[2023-11-04 18:17] LABS: MDiff Complete? YES
[2023-11-04] MEDS ORDERED: Sodium Chloride 0.9% 500 ML ONE (18:36)
== END 2023-11-04 19:15 | disposition home or self-care (01) ==
LOC: MADERS 16:15
DX: I95.1 Orthostatic hypotension (principal); N17.9 Acute kidney failure, unspecified; E11.9 Type 2 diabetes mellitus without complications; I10 Essential (primary) hypertension
CPT/HCPCS: 80053; 85025; 96360; J7030

== ENCOUNTER 2024-01-14 17:10 | Emergency (ER) | payer MEDICARE | END 2024-01-14 19:17 | disposition home or self-care (01) | LOC: MADERS 17:10 | DX: S00.93XA Contusion of unspecified part of head, initial encounter (principal); I10 Essential (primary) hypertension; E78.5 Hyperlipidemia, unspecified; E11.42 Type 2 diabetes mellitus with diabetic polyneuropathy; Z79.899 Other long term (current) drug therapy; Z79.4 Long term (current) use of insulin; W19.XXXA Unspecified fall, initial encounter | CPT/HCPCS: 70450; 72125 ==

== ENCOUNTER 2024-09-05 17:49 | Inpatient (IN) | payer MEDICARE ==
[2024-09-05] MEDS ORDERED: Nitroglycerin 0.4 MG TAB (25 Tab Bottle) SL PRN (20:09)
[2024-09-05] MEDS ORDERED: Dextrose 50% Abboject 50 ML SYRINGE SLOW IVP PRN (20:14)
[2024-09-05] MEDS ORDERED: Glucagon 1 MG/ML KIT IM PRN (20:14)
[2024-09-05] MEDS ORDERED: traMADol HCl 50 MG TAB PO PRN (20:23)
[2024-09-05] MEDS: Atorvastatin Calcium 40 MG TAB PO SCH (21:21)
[2024-09-05] MEDS: Icosapent Ethyl 1 GM CAPSULE PO SCH (21:21)
[2024-09-05] MEDS: Famotidine 20 MG TAB PO SCH (21:21)
[2024-09-05] MEDS: Midodrine HCl 5 MG TAB PO SCH (21:21)
[2024-09-05] MEDS: Ranolazine ER 500 MG TAB PO SCH (21:22)
[2024-09-05] MEDS: levETIRAcetam 500 MG TAB PO SCH (21:22)
[2024-09-05 23:08] VITALS: BMI 20.5
[2024-09-06] MEDS: FLU (Fluad Triv) TS24-25 (65UP)/MF59C/PF 45 MCG/0.5 ML Syringe IM ONE (03:22)
[2024-09-06] MEDS: Sertraline 25 MG TAB PO SCH (09:42)
[2024-09-06] MEDS: Empagliflozin 10 MG TAB PO SCH (09:42)
[2024-09-06] MEDS: Enoxaparin 40 MG (0.4 mL) SYRINGE SC SCH (09:42)
[2024-09-06] MEDS: Clopidogrel Bisulfate 75 MG TAB PO SCH (09:42)
[2024-09-06] MEDS: Aspirin 81 mg Enteric Coated Tablet PO SCH (09:42)
[2024-09-06] MEDS: Lantus 1000 UNITS/10 ML VIAL SC SCH (09:51)
[2024-09-06] MEDS: HumaLOG 300 UNITS/3 ML VIAL SC PRN (13:34)
[2024-09-07] MEDS: Acetaminophen 500 MG TAB PO PRN (20:00)
[2024-09-09] MEDS: Melatonin 3 MG TAB PO PRN (23:06)
[2024-09-09] MEDS: traZODone HCl 50 MG TAB PO PRN (23:07)
[2024-09-10 16:13] LABS: Bilirubin Negative (Negative); Blood, Urine Negative (Negative); Clarity Clear (Clear); Glucose, Urine (Dipstick) >=1000 mg/dL (Negative); Ketone, Urine Negative (Negative); Leukocyte Negative (Negative); Nitrite Negative (Negative); Protein, Urine (Dipstick) Negative (Neg-Trace); Urobilinogen 0.2 mg/dL (Less than 2); pH, Urine 5.5 (5.0-9.0)
[2024-09-10 16:35] LABS: Bacteria/HPF Rare-Few HPF (None Seen); RBC/HPF None Seen HPF (0-3); Squamous Epithelial 0-3 HPF (0-3); WBC/HPF 0-3 HPF (0-3)
[2024-09-11] MEDS: Fludrocortisone Acetate 0.1 MG TAB PO SCH (08:24)
[2024-09-12] MEDS: Sulfameth/Trimethoprim DS 800-160mg TAB PO SCH (20:50)
[2024-09-13 05:04] LABS: Hematocrit 37.1 % (42.0-52.0); Hemoglobin 12.3 g/dL (14.0-18.0); Platelet Count 143 10x3/uL (130-400)
[2024-09-17] MEDS: Polyethylene Glycol 3350 17 GM Packet PO PRN (15:13)
[2024-09-17] MEDS: Fludrocortisone Acetate 0.1 MG TAB PO SCH (20:51)
[2024-09-18] MEDS: Docusate Sodium 100 MG/10 ML UDCUP PO SCH (09:07)
[2024-09-18] MEDS: Polyethylene Glycol 3350 17 GM Packet PO SCH (09:08)
[2024-09-18] MEDS: Proctozone-HC 30 GM TUBE TOP SCH (09:19)
[2024-09-18] MEDS: Ondansetron ODT 4 MG TAB PO PRN (12:17)
[2024-09-21] MEDS: Bisacodyl 10 MG SUPP PR PRN (15:12)
[2024-09-21] MEDS: Fleet Saline Enema 133 ML BOT PR SCH (17:08)
[2024-09-21] MEDS: Lactulose 20 GM (30 mL) UDCUP PO PRN (18:22)
[2024-09-21] MEDS: Senokot S 8.6-50 MG TAB PO SCH (20:06)
[2024-09-24 10:57] VITALS: BMI 20.9
[2024-09-27 08:43] VITALS: BP 165/82; TEMP 97.7
== END 2024-09-27 09:30 | disposition hospice, home (50) | DRG 561 ==
LOC: MADMS 19:03
PROVIDERS: ADMIT Family Medicine; ATTEND Family Medicine
DX: S22.081D Stable burst fracture of T11-T12 vertebra, subsequent encounter for fracture with routine healing (principal); F03.90 Unspecified dementia, unspecified severity, without behavioral disturbance, psychotic disturbance, mood disturbance, and anxiety; N40.0 Benign prostatic hyperplasia without lower urinary tract symptoms; R53.81 Other malaise; Z95.810 Presence of automatic (implantable) cardiac defibrillator; I25.10 Atherosclerotic heart disease of native coronary artery without angina pectoris; E11.9 Type 2 diabetes mellitus without complications; I95.1 Orthostatic hypotension; Z79.4 Long term (current) use of insulin; Z79.899 Other long term (current) drug therapy; Z90.49 Acquired absence of other specified parts of digestive tract; Z66 Do not resuscitate; G47.00 Insomnia, unspecified; W18.30XD Fall on same level, unspecified, subsequent encounter
CPT/HCPCS: 36415; 36416; 81001; 82565; 85014; 85018; 85049; 87086; J1650; J1815; Q0162